=== PATIENT | female | born 1995 | race Caucasian/White ===

== ENCOUNTER 2019-05-15 10:02 | Emergency (ER) | payer BC ==
[~2019-05-15] VITALS: Ht 167.6 cm; Wt 59.0 kg
[2019-05-15 10:05] VITALS: BP 118/76
[2019-05-15] MEDS ORDERED: ALBUTEROL2.5 MG/3 M HHN (10:05)
[2019-05-15] MEDS ORDERED: LORATADINE10 M2 PO (10:05)
--- NOTE | 2019-05-15 10:05 | NUR ---
ED Nurse Note: presents as per triage note. no dyspnea upon arrival. speaks full sentences well. no active coughing. relates boyfriend she lives with is covid + test. pt states she does not have albuterol mdi at home.
[2019-05-15 10:15] VITALS: BP 112/76
--- NOTE | 2019-05-15 10:15 | NUR ---
ED Nurse Note: Pt cleared by health care Provider for discharge. DC instructions/prescription was given and explained to pt and verbalized understanding of teachings. All medical devices such as ID band removed. Pt is AAO x4, ambulatory and left with all personal belongings.
--- NOTE | 2019-05-15 11:39 | Emergency Room Report ---
History of Present Illness General Chief Complaint: Dyspnea/Respdistress Source: Patient Present Illness HPI Patient is a 23-year-old female presents after increased cough. Been having subjective fevers. Reports having sick contacts at home including boyfriend who is tested positive for martinez virus. Patient states that she had not been having any dizziness or lightheadedness. She denies any chest pain. Reports having some throat soreness as well as nonproductive cough. Denies any other current symptoms. Had previous history of asthma. Denies any leg pain or swelling. Allergies: Coded Allergies: SHELLFISH DERIVED (Verified Allergy, Severe, Anaphylaxis, 05/15/19) COVID-19 Screening Contact w/high risk pt: Yes Recent Travel to affected area: No Experienced COVID-19 symptoms?: Yes COVID-19 symptoms experienced: Shortness of Breath, Cough Patient History Past Medical History: see triage record Last Menstrual Period: last week Now: No Reviewed Nursing Documentation: PMH: Agreed; PSxH: Agreed Nursing Documentation-PMH Past Medical History: No History, Except For Hx Asthma: Yes History Of Psychiatric Problem: Yes Review of Systems All Other Systems: negative except mentioned in HPI Physical Exam Vital Signs Date Time Temp Pulse Resp B/P (MAP) Pulse Ox O2 Delivery O2 Flow Rate FiO2 05/15/19 09:52 99.0 97 20 118/76 (90) 97 Room Air General Appearance: well appearing, no apparent distress, alert, GCS 15 Head: normocephalic, atraumatic ENT: hearing grossly normal, normal voice Neck: full range of motion, supple Respiratory: normal inspection, no respiratory distress, speaking full sentences Cardiovascular #1: normal peripheral pulses Gastrointestinal: normal bowel sounds, soft Musculoskeletal: normal inspection Neurologic: alert, motor strength/tone normal, turbine operator III-XII nml as tested, oriented x3, normal gait Psychiatric: normal inspection, mood/affect normal Skin: no rash Medical Decision Making Diagnostic Impression: Primary Impression: Asthma exacerbation Additional Impression: Suspected 2019 novel coronavirus infection ER Course Patient presented for cough. Differential diagnosis include was not limited to viral respiratory infection, upper respiratory infection, bronchitis, pneumonia among others. Patient has a benign exam and does not appear to require any imaging or laboratory testing at this time. Does not appear to be in any respiratory distress. Oxygen saturation is normal and patient is currently afebrile. Given patient's recent sick contacts with no martinez viral infection patient likely has coronavirus. Is not taking antipyretics. Patient was noted to have symptoms consistent with a viral respiratory infection. Patient was advised to self quarantine. Was advised to return if began having fever increased difficulty breathing or other concerns. The patient is advised to follow up with primary care doctor for recheck. Patient is advised to return if any worsening condition or if any changes in status that are concerning. Last Vital Signs Date Time Temp Pulse Resp B/P (MAP) Pulse Ox O2 Delivery O2 Flow Rate FiO2 05/15/19 10:15 86 20 112/76 97 Room Air 05/15/19 10:05 99.0 Status: improved Disposition: HOME, SELF-CARE Condition: Stable Scripts Loratadine (LORATADINE) 10 Mg Tablet 10 MG PO DAILY, #30 TAB Prov: Julian Suarez MD 05/15/19 Albuterol Sulfate* (ALBUTEROL SULFATE HHN*) 2.5 Mg/3 Ml Vial.neb 2.5 MG HHN Q4H PRN for Shortness of Breath, #25 VIAL Prov: Julian Suarez MD 05/15/19 Referrals: NOT CHOSEN IPA/,REFERRING (PCP) Patient Instructions: Asthma, Adult, Viral Respiratory Infection Additional Instructions: Return if increased Shortness of breath, dizziness or other concerns. Julian Suarez MD May 15, 2019 11:39
== END 2019-05-15 10:15 | disposition home or self-care (01) ==
LOC: EMR 10:15
DX: J45.901 Unspecified asthma with (acute) exacerbation (principal); R50.9 Fever, unspecified; R05 Cough; Z20.828 Contact with and (suspected) exposure to other viral communicable diseases; Z91.013 Allergy to seafood
CPT/HCPCS: 99282